=== PATIENT | female | born 1990 | race Caucasian/White ===

== ENCOUNTER 2017-05-28 05:37 | Observation (INO) ==
[2017-05-28] MEDS ORDERED: ONDANSETRON 4 MG/2 ML VIAL IV STA (06:25)
[2017-05-28] MEDS ORDERED: HYDROmorphone 2 MG/1 ML VIAL IV STA (06:25)
[2017-05-28] MEDS ORDERED: HYDROmorphone 2 MG/1 ML VIAL ONE (06:30)
[2017-05-28] MEDS ORDERED: ONDANSETRON 4 MG/2 ML VIAL ONE ×2 (06:30→14:36)
--- NOTE | 2017-05-28 06:33 | Emergency Department Note ---
Omid Babcock Mantricia, am scribing for, and in the presence of, Lissett Verma DO 06:28. IBayron Debra, DO, personally performed the services described in this documentation, ascribed by Ezra Anne in my presence, and it is both accurate and complete 633 . Arrival - Arrival Chief Complaint: Urogenital - Female Stated Complaint: sverer abd cramps/contractions after d&c ED Nursing Triage Note: C/O Abd cramping- describes as contractions. Onset 2300 lastnight. Pt reports having D&C on 05/26/17 after having a incomplete spontaneous at 13 weeks. Pt reports that bleeding has progressed normally since surgery. Reports that she has used 12 pads since Monday afternoon ; approx 5 in the past 24 hours. Last dose of percocet was approx 0200 Mode of Arrival: Ambulatory Limitations: No Limitations Source: Patient - History of Present Illness HPI Narrative: Pt is a 27 y/o white female ambulating to ED with c/o abdominal pain that onset 1900 last night. She reports that she had a D&C performed by Dr. Herrmann on 05/26 after having an incomplete spontaneous at 13 weeks. She reports that when the cramps worsened, she took a Percocet tablet and had no relief; she took another Percocet tablet at 0200 and was still not relieved. This was pt 's first miscarriage with a . She states that she has been seeing blood clots in her urine and has used 12 pads since her surgery 2 days ago. Pt has a PSHx of appendicitis. No other complaints were reported to ED. Onset (ago): hour(s) Consistency: constant Severity: moderate Date of Last Menstrual Period: D&C on 05/26/17 Allergies/Adverse Reactions: Allergies Allergy/AdvReac Type Severity Reaction Status Date / Time Penicillins Allergy Severe HIVES Verified 05/26/17 09:13 Home Medications: Home Medications Medication Instructions Recorded Confirmed Type oxyCODONE/ACETAMINOPHEN 5-325 1 tablet PO Q6H PRN #20 tablet 05/26/17 05/28/17 Rx [Percocet 5-325] Doxycycline Monohydrate 100 mg PO BID #14 capsule 05/28/17 Rx Review of System - Review of System 12 point system: reviewed and no additional remarkable complaints except as stated - Review of System Constitutional: Absent: chills, diaphoresis, fever Respiratory: Absent: cough Cardiovascular: Absent: chest pain Gastrointestinal: Present: abdominal pain. Absent: nausea, vomiting, diarrhea Genitourinary female: Absent: abnormal menses, dysuria Musculoskeletal: Absent: arm pain, back pain, leg pain, neck pain Medical,Surgical,& Family Hx - Medical History Neurology: No history of: Seizures HEENT: History of: Eye Problem Reproductive: History of: Reproductive Problems - Surgical History Abdominal Surgeries: Surgical HX of: Abdominal Surgery, Appendectomy Reproductive Surgeries: Surgical HX of;: Section, Gynecologic Surgery - Social History Smoking Status: Never smoker Frequency of Alcohol Use: None Type of Drug Use: None Exam Vital Signs: Vital Signs Temperature 98.4 F 05/28/17 05:48 Pulse Rate 95 H 05/28/17 08:45 Respiratory Rate 20 05/28/17 08:45 Blood Pressure 107/71 05/28/17 08:45 O2 Sat by Pulse Oximetry 100 05/28/17 08:45 - General General appearance: alert, in no apparent distress - Head Head exam: Present: atraumatic, normocephalic - Eye Eye exam: Present: normal appearance, PERRL, EOMI - ENT ENT exam: Present: normal exam, normal oropharynx, mucous membranes moist - Neck Neck exam: Present: normal inspection - Chest Chest inspection: Present: normal inspection - Respiratory Respiratory exam: Present: normal lung sounds bilaterally - Cardiovascular Cardiovascular exam: Present: regular rate, normal rhythm, normal heart sounds - Abdominal Exam Abdominal exam: Present: soft, tenderness (suprapubic), normal bowel sounds. Absent: distention, guarding, rebound - Extremities Exam Extremities exam: Present: normal inspection - Back Exam Back exam: Present: normal inspection - Neurological Exam Neurological exam: Present: alert, oriented X3, CN II-XII intact - Psychiatric Psychiatric exam: Present: normal affect, normal mood - Skin Skin exam: Present: warm, dry, intact, pallor Course Course Narrative: Dr Prakash will come in to the ER to see the patient Results - Labs CBC & BMP: 05/28/17 06:23 05/28/17 06:23 Lab Results: I have reviewed the patients labs Labs: Laboratory Tests 05/28/17 05/28/17 05/28/17 06:23 06:23 06:23 Hct 35.6 L MPV 9.5 L Lymph % (Auto) 16.3 L Neut # (Auto) 7.7 H BUN 6 L Albumin/Globulin Ratio 1.0 L HCG Beta Subunit 154.0 H Urine Urobilinogen 2.0 H - Diagnostic Findings Procedure: Ultrasound: report reviewed by me (Pelvic: Patient is only 2 days postop D&C. Endometrial stripe is thickened with heterogeneous debris in the canal. Whether this represents anticipated postoperative hematoma or retained POC is unclear. ) Disposition Clinical Impression: Incomplete Case discussed with: patient Disposition: Still a Patient Condition: Stable New Prescriptions: Rx's Medication Instructions Recorded Doxycycline Monohydrate 100 mg PO BID #14 capsule 05/28/17 Time of Disposition: 09:00
[2017-05-28 06:55] LABS: Basophils # 0.1 10*3/uL (0.0-0.2); Basophils % 0.6 % (0.0-0.8); Eosinophils # 0.3 10*3/uL (0.0-0.87); Eosinophils % 2.5 % (0.00-10.9); Hematocrit 35.6 VOL% (35.7-47.0); Hemoglobin 12.2 GM/DL (12.0-16.0); Immature Granulocytes % 0.6 %; Immature Granulocytes Absolute 0.06 #; Lymphocytes # 1.7 10*3/uL (1.4-4.0); Lymphocytes % 16.3 % (21.3-54.2); Mean Corpuscular HGB Conc 34.3 GM/DL (32-36); Mean Corpuscular Hemoglobin 30 PG (27-34); Mean Corpuscular Volume 88.8 FL (87-102); Mean Platelet Volume 9.5 FL (9.6-12.0); Monocytes # 0.7 10*3/uL (0.11-0.8); Monocytes % 6.9 % (1.7-12.7); Neutrophils # 7.7 10*3/uL (1.4-7.4); Neutrophils % 73.1 % (38.7-73.9); Platelet Count 275 T/CUMM (130-400); Red Blood Count 4.01 MC/CUMM (3.8-5.5); Red Cell Distribution Width 12.3 % (9.3-17.3); White Blood Count 10.5 T/CUMM (4-12)
[2017-05-28 07:05] LABS: Apearance,Urine CLEAR (Clear); Bilirubin,Urine Negative (Negative); Blood, Urine Large mg/dL (Negative); Glucose,Urine (UA) Negative (Negative); Ketones,Urine Negative (Negative); Mucus,Urine Occasional /LPF (Occasional); Nitrite,Urine Negative (Negative); Protein,Urine Negative; RBC,Urine 8 /HPF (0-4); Squamous Epithelial Cell,Urine Occasional /HPF (0-10); Urine Color Yellow (Yellow); Urine Specific Gravity 1.011 (1.001-1.035)
[2017-05-28 07:19] LABS: Albumin 3.7 G/DL (3.4-5.0); Bilirubin,Total 0.6 MG/DL (0.2-1.0); Calcium 9.2 MG/DL (8.5-10.1); Osmolality,Calculated 273.5 MOS/KG (273-304); Potassium 3.7 MMOL/L (3.5-5.1); Total Protein 7.2 G/DL (6.4-8.3)
--- NOTE | 2017-05-28 07:45 | Ultrasound Report ---
US pelvic complete Indication: Pelvic pain. D&C 2 days ago. SAB. Ultrasound: Transabdominal grayscale and color Doppler images the pelvis were obtained. Uterus is anteverted measuring 114 x 57 x 67 mm. Endometrial stripe is 39 mm thick with debris and heterogeneous material present. Right ovary 30 x 18 x 20 mm. Left ovary 28 x 25 x 24 mm. Both are unremarkable. No free fluid in the pelvis. Impression: Patient is only 2 days postop D&C. Endometrial stripe is thickened with heterogeneous debris in the canal. Whether this represents anticipated postoperative hematoma or retained POC is unclear. PROCEDURE INTERPRETED AT [facility] DEPARTMENT OF RADIOLOGY Final Report Signed by: Paul Rodríguez M.D.
--- NOTE | 2017-05-28 08:14 | OB/GYN History & Physical ---
History of Present Illness Chief complaint: pelvic pain s/p suction D&C for MAB History of present illness: This is a 27-year-old 011 who had a suction D&C for a MAB at 9 weeks on Monday. She is postoperative day #2 today. She presents with cramping that started early this morning. She says her bleeding has been under control. She has not passed any more tissue. She denies a fever. She denies nausea and vomiting. Home Medications Medication Instructions Recorded Confirmed Type oxyCODONE/ACETAMINOPHEN 5-325 1 tablet PO Q6H PRN #20 tablet 05/26/17 05/28/17 Rx [Percocet 5-325] Allergies Allergy/AdvReac Type Severity Reaction Status Date / Time Penicillins Allergy Severe HIVES Verified 05/26/17 09:13 Medical,Surgical,& Family Hx - Medical History Neurology: No history of: Seizures HEENT: History of: Eye Problem Reproductive: History of: Reproductive Problems - Surgical History Abdominal Surgeries: Surgical HX of: Abdominal Surgery, Appendectomy Reproductive Surgeries: Surgical HX of;: Section, Gynecologic Surgery - Social History Smoking Status: Never smoker Frequency of Alcohol Use: None Type of Drug Use: None 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 Absent: tender - Respiratory Respiratory exam: Absent: accessory muscle use - Cardiovascular Cardiovascular exam: Present: regular rate and rhythm - GI/Abdominal GI/Abdominal exam: Present: soft. Absent: guarding, tenderness, rebound - Extremities Exam Extremities exam: Absent: calf tenderness - Neurological Exam Neurological exam: Present: alert, oriented X3 - Psychiatric Psychiatric exam: Present: normal affect, normal mood - Skin Skin exam: Present: normal color Assessment and Plan (1) Retained prod concept-unsp Status: Acute Assessment and plan: ept is uncomfortable with the cramping. her bleeding is not heavy. I will start IV antibiotics . We will observe for a few hours and if the cramping does not get better we will proceed with a repeat D&C. R/B/C/A reviewed with the pt. Current Visit: Yes Results - Labs CBC & BMP: 05/28/17 06:23 05/28/17 06:23
[2017-05-28] MEDS ORDERED: DOXYCYCLINE HYCLATE INJ 100 MG in SODIUM CHLORIDE 0.9% 100 ML IV STA (08:17)
[2017-05-28] MEDS ORDERED: DOXYCYCLINE HYCLATE 100 MG VIAL ONE (08:28)
[2017-05-28] MEDS ORDERED: LACTATED RINGERS 1,000 ML IV SCH (08:30)
[2017-05-28] MEDS ORDERED: OXYTOCIN/LR 20 UNIT/1,000 ML BAG IV ONE ×2 (09:54→13:50)
[2017-05-28] MEDS ORDERED: HYDROmorphone 2 MG/1 ML VIAL IV PRN (12:05)
[2017-05-28] MEDS ORDERED: MEPERIDINE 50 MG/1 ML VIAL IV PRN (12:08)
[2017-05-28] MEDS ORDERED: ONDANSETRON 4 MG/2 ML VIAL IV PRN (12:09)
--- NOTE | 2017-05-28 14:14 | Operative Note ---
Date of procedure: 05/28/17 Pre-op diagnosis: retained POCs after an MAB at 9 weeks Post-op diagnosis: same Procedure: Ultrasound-guided dilatation and curettage Findings: Uterus anteverted cervix without any obvious lesions open fingertip Procedure was as follows: The patient was consented for a D&C possible suction secondary to retained products of conception after having had a suction D&C 2 days ago. The patient was thus taken back to the operating room where general anesthesia was found to be adequate and the patient was prepped and draped in the usual sterile fashion carefully placed in Rehan stirrups. A pelvic exam was performed uterus noted to be anteverted. A speculum was placed and patient vagina anterior lip the cervix was grasped with a single-tooth tenaculum and the cervix was easily dilated with Hegar dilators. A sharp curettage was performed and there was noted products of conceptions that were removed and ultrasound was then called to come do an ultrasound while continuing with the curettage. Once the endometrial stripe looked thin and all the products of conception had been removed the ultrasound left the room. The there was minimal bleeding from the cervical loss. The patient did receive Pitocin while in the operating room. The single-tooth tenaculum was then removed from the anterior lip of the cervix and the speculum was removed and there was minimal bleeding the cervix was closed and the uterus firm to touch. Sponge lap and instrument counts were correct 3. The patient had received already doxycycline 100 mg earlier in the day. The patient went to the recovery room in stable condition. Anesthesia: GETA Surgeon / Physician: Katina Kate Estimated blood loss: other (50) Specimens: other (products of conception) Condition: stable Disposition: PACU Results - Labs CBC & BMP: 05/28/17 06:23 05/28/17 06:23 Discharge Plan - Discharge Data Disposition: Disch To Home/Self Care Condition at Discharge: Stable Discharge Diet: advance to your usual diet Hygiene: may shower Weight Bearing at Discharge: full weight bearing Driving: no restrictions Contact your physician if you experience:: fever over 101, Difficulty voiding, Redness or swelling, Nausea/Vomiting, Shortness of breath, Bleeding, pain uncontrolled by pain medications - Discharge Medications New Doxycycline Monohydrate 100 mg PO BID #14 capsule No Action oxyCODONE/ACETAMINOPHEN 5-325 [Percocet 5-325] 1 tablet PO Q6H PRN #20 tablet PRN Reason: Abdominal Pain - Follow Up or Referral - Forms/Instructions
--- NOTE | 2017-05-28 14:20 | Anesthesia Post-Op ---
Anesthesia Post OP - Post Ansesthetic Evaluation Patient seen in post op: Yes Resp: within normal limits CV: within normal limits Mental: within normal limits Temp: within normal limits [id number]: within normal limits Nausea and Vomiting: within normal limits Pain: within normal limits
[2017-05-28] MEDS ORDERED: PROPOFOL 200 MG/20 ML VIAL IV ONE (14:35)
[2017-05-28] MEDS ORDERED: DEXAMETHASONE 10 MG/1 ML VIAL ONE (14:36)
[2017-05-28] MEDS ORDERED: MIDAZOLAM 2 MG/2 ML VIAL ONE (14:36)
[2017-05-28] MEDS ORDERED: KETOROLAC 30 MG/1 ML VIAL ONE (14:36)
[2017-05-28] MEDS ORDERED: SEVOFLURANE 1 UNIT/15 MINUTE INH ONE (14:41)
[2017-05-28] MEDS ORDERED: IBUPROFEN 800 MG TABLET PO PRN (14:59)
[2017-05-28 16:17] VITALS: BP 109/67
--- NOTE | 2017-05-30 18:20 | Pathology Report from [facility] ---
[facility] ACCESSION # : [id number] PATIENT NAME : Jannette Clement ORDERING DR : Katina Prakash MD CLINICAL HX: Missed AB POST-OP DX: Same SPECIMEN INFO: Products of conception GROSS DESCRIPTION: The specimen is received in formalin labeled with the patients name and consists of an aggregate of hemorrhagic soft tissue and clotted blood measuring 9.5 x 6.0 cm. No definite chorionic villi or tissue are grossly appreciated. Candle Molder sections submitted in cassettes A thru F. DIAGNOSIS FOR JANNETTE CLEMENT: PRODUCTS OF CONCEPTION SUBMITTED: Fragmented products of conception including chorionic villi, inflammation, blood. COLLECTED DATE: 05/29/2017 [facility] REPORT DATE: 05/30/2017 ELECTRONICALLY SIGNED BY: Janessa Short M.D. 05/30/2017 - 10:01:19 [facility]
== END 2017-05-28 18:15 | disposition home or self-care (01) ==
LOC: N.ED 05:37 → N.EDINP 05:37 → N.OB 09:30
PROVIDERS: ADMIT Obstetrics & Gynecology; ATTEND Obstetrics & Gynecology